=== PATIENT | male | born 1965 | race Caucasian/White ===

== ENCOUNTER → 2023-12-01 09:52 | Outpatient (REF) | payer OTHER, SELFPAY | LOC: MRI 09:52 | PROVIDERS: ATTENDING PHYSICIAN Family Medicine | DX: G83.4 Cauda equina syndrome (principal) | CPT/HCPCS: 72158; A9575 ==

== ENCOUNTER → 2023-12-20 08:09 | Outpatient (REF) | payer OTHER, SELFPAY | LOC: MRI 08:09 | PROVIDERS: ATTENDING PHYSICIAN Neurological Surgery | DX: M31.9 Necrotizing vasculopathy, unspecified (principal) | CPT/HCPCS: 72141; 72146 ==

== ENCOUNTER → 2023-12-24 07:17 | Outpatient (REF) | payer OTHER, SELFPAY | LOC: HWRAD 07:17 | PROVIDERS: ATTENDING PHYSICIAN Nurse Practitioner Family; FAMILY PHYSICIAN Family Medicine | DX: K76.89 Other specified diseases of liver (principal) | CPT/HCPCS: 76700 ==

== ENCOUNTER → 2024-03-26 11:40 | Outpatient (REF) | payer OTHER, SELFPAY | LOC: DHCBC/DCA 11:40 | PROVIDERS: ATTENDING PHYSICIAN Internal Medicine Cardiovascular Disease; FAMILY PHYSICIAN Family Medicine | DX: R06.02 Shortness of breath (principal); R73.03 Prediabetes; E78.00 Pure hypercholesterolemia, unspecified; Z82.49 Family history of ischemic heart disease and other diseases of the circulatory system; I45.10 Unspecified right bundle-branch block; R93.1 Abnormal findings on diagnostic imaging of heart and coronary circulation | CPT/HCPCS: 71046; 78452; 93017; A9500 ==

== ENCOUNTER → 2024-03-30 14:21 | Outpatient (REF) | payer OTHER, SELFPAY | LOC: HWRCS 14:21 | PROVIDERS: ATTENDING PHYSICIAN Internal Medicine Cardiovascular Disease; FAMILY PHYSICIAN Family Medicine | DX: R06.02 Shortness of breath (principal); R61 Generalized hyperhidrosis; R73.03 Prediabetes; E78.00 Pure hypercholesterolemia, unspecified; Z82.49 Family history of ischemic heart disease and other diseases of the circulatory system; I45.10 Unspecified right bundle-branch block; R93.1 Abnormal findings on diagnostic imaging of heart and coronary circulation; G20.A1 Parkinson's disease without dyskinesia, without mention of fluctuations | CPT/HCPCS: 93306 ==

== ENCOUNTER → 2024-07-23 14:11 | Outpatient (REF) | payer OTHER, SELFPAY | LOC: RAD 14:11 | PROVIDERS: ATTENDING PHYSICIAN Nurse Practitioner Family; FAMILY PHYSICIAN Family Medicine | DX: D13.4 Benign neoplasm of liver (principal) | CPT/HCPCS: 74178; Q9967 ==

== ENCOUNTER → 2024-09-21 18:32 | Outpatient (REF) | payer OTHER, SELFPAY | LOC: MRI 3T 18:32 | PROVIDERS: ATTENDING PHYSICIAN Surgery; FAMILY PHYSICIAN Family Medicine | DX: D18.03 Hemangioma of intra-abdominal structures (principal) | CPT/HCPCS: 74183; A9575 ==

== ENCOUNTER → 2024-12-22 16:33 | Outpatient (REF) | payer OTHER, SELFPAY | LOC: MRI 3T 16:33 | PROVIDERS: ATTENDING PHYSICIAN Physician Assistant Surgical; FAMILY PHYSICIAN Internal Medicine Geriatric Medicine | DX: M54.16 Radiculopathy, lumbar region (principal) | CPT/HCPCS: 72158; A9575 ==

== ENCOUNTER → 2025-02-17 17:30 | Outpatient (REF) | payer OTHER, SELFPAY | LOC: RAD 17:30 | PROVIDERS: FAMILY PHYSICIAN Internal Medicine Geriatric Medicine; OTHER PHYSICIAN Neurological Surgery | DX: M89.9 Disorder of bone, unspecified (principal) | CPT/HCPCS: 72110 ==